=== PATIENT | female | born 1960 | race Caucasian/White ===

== ENCOUNTER 2022-07-03 10:52 | Outpatient (CLI) | payer OTHER | END 2022-07-03 10:53 | disposition home or self-care (01) | LOC: BICMRI 10:52 | PROVIDERS: ATTEND Family Medicine | DX: S33.5XXD Sprain of ligaments of lumbar spine, subsequent encounter (principal); R68.84 Jaw pain; M47.816 Spondylosis without myelopathy or radiculopathy, lumbar region | CPT/HCPCS: 72148 ==

== ENCOUNTER 2023-07-03 10:15 | Outpatient (CLI) | payer OTHER | END 2023-07-03 10:16 | disposition home or self-care (01) | LOC: BICRAD 10:15 | DX: S73.101A Unspecified sprain of right hip, initial encounter (principal) ==

== ENCOUNTER 2025-06-28 10:21 | Inpatient (IN) | payer MEDICARE, OTHER, SELFPAY ==
[2025-06-28] MEDS ORDERED: Ketorolac Tromethamine 30 MG (1 mL) VIAL ONE (12:34)
[2025-06-28] MEDS ORDERED: Ondansetron PF 4 MG/2 ML Vial ONE (12:34)
[2025-06-28 12:36] LABS: #Basophils 0.06 10x3/uL (0.0-0.2); #Eosinophils 0.06 10x3/uL (0.0-0.7); #Monocytes 0.77 10x3/uL (0.11-0.59); #Neutrophils 11.34 10x3/uL (1.40-6.50); %Basophils 0.4 % (0.0-1.0); %Eosinophils 0.4 % (0.0-10.0); %Lymphocytes 14.9 % (21.0-51.0); %Monocytes 5.3 % (0.0-10.0); %Neutrophils 78.7 % (42.0-75.0); Hematocrit 46.1 % (36.0-47.0); Hemoglobin 15.5 g/dL (12.0-16.0); Mean Corpuscular Hemoglobin 29.0 pg (27.0-31.0); Mean Corpuscular Volume 86.3 fL (78.0-98.0); Platelet Count 295 10x3/uL (130-400); Red Blood Cell (RBC) Count 5.34 mill/uL (4.20-5.40); White Blood Cell (WBC) Count 14.42 10x3/uL (4.8-10.8)
[2025-06-28] MEDS ORDERED: Communication Order-Pharmacy FS SCH (12:45)
[2025-06-28 12:59] LABS: ALT (SGPT) 14 U/L (Less than 34); AST (SGOT) 31 U/L (11-34); Albumin 4.1 g/dL (3.1-4.5); Alkaline Phosphatase 82 U/L (40-110); Anion Gap 18 mmol/L (10-20); BUN (Urea Nitrogen) 10 mg/dL (9.8-20.1); Bilirubin, Total 0.3 mg/dL (0.3-1.2); Calc. Creatinine Clearance 0 mL/min (70-130); Calcium 9.5 mg/dL (7.8-10.44); Carbon Dioxide 19 mmol/L (23-31); Chloride 109 mmol/L (98-107); Globulin 3.5 g/dL (2.4-3.5); Glucose 96 mg/dL (80-115); Potassium 4.8 mmol/L (3.5-5.1); Sodium 141 mmol/L (136-145)
[2025-06-28 13:04] LABS: INR-International Normal Ratio 0.9; PTT 29.9 sec (22.9-36.1); Prothrombin Time 12.4 sec (12.0-14.7)
[2025-06-28] MEDS ORDERED: HYDROmorphone 0.5 MG/0.5 ML SYRINGE ONE (13:20)
[2025-06-28] MEDS: HYDROcodone/Acetaminophen 10/325 mg Tablet PO PRN (14:54)
[2025-06-28 19:54] VITALS: BMI 26.2
[2025-06-28] MEDS: Calcium Carbonate 500 MG ChewTAB PO PRN (23:52)
[2025-06-29 06:00] LABS: #Basophils 0.04 10x3/uL (0.0-0.2); #Eosinophils 0.16 10x3/uL (0.0-0.7); #Monocytes 0.95 10x3/uL (0.11-0.59); #Neutrophils 6.58 10x3/uL (1.40-6.50); %Basophils 0.4 % (0.0-1.0); %Eosinophils 1.4 % (0.0-10.0); %Lymphocytes 29.9 % (21.0-51.0); %Monocytes 8.6 % (0.0-10.0); %Neutrophils 59.3 % (42.0-75.0); Hematocrit 39.9 % (36.0-47.0); Hemoglobin 13.1 g/dL (12.0-16.0); Mean Corpuscular Hemoglobin 29.6 pg (27.0-31.0); Mean Corpuscular Volume 90.1 fL (78.0-98.0); Platelet Count 275 10x3/uL (130-400); Red Blood Cell (RBC) Count 4.43 mill/uL (4.20-5.40); White Blood Cell (WBC) Count 11.09 10x3/uL (4.8-10.8)
[2025-06-29 06:15] LABS: ALT (SGPT) 18 U/L (Less than 34); AST (SGOT) 35 U/L (11-34); Albumin 3.5 g/dL (3.1-4.5); Alkaline Phosphatase 68 U/L (40-110); Anion Gap 12 mmol/L (10-20); BUN (Urea Nitrogen) 22 mg/dL (9.8-20.1); Bilirubin, Total 0.4 mg/dL (0.3-1.2); Calc. Creatinine Clearance 64 mL/min (70-130); Calcium 9.8 mg/dL (7.8-10.44); Carbon Dioxide 27 mmol/L (23-31); Chloride 104 mmol/L (98-107); Globulin 2.7 g/dL (2.4-3.5); Glucose 115 mg/dL (80-115); Potassium 3.9 mmol/L (3.5-5.1); Sodium 139 mmol/L (136-145)
[2025-06-29] MEDS: Pantoprazole 40 MG VIAL IVP SCH ×3 (08:42→20:43)
[2025-06-29] MEDS ORDERED: PROPOFOL 20 ML ONE (12:10)
[2025-06-29] MEDS ORDERED: SUCCINYLCHOLINE/SOD CL,ISO/PF 200 MG/10 ML SYRINGE FS ONE (12:10)
[2025-06-29] MEDS ORDERED: Ropivacaine 0.2% HCl/PF 20 ML ONE (12:21)
[2025-06-29] MEDS ORDERED: Ropivacaine 0.5% HCl/PF (150 MG/30 ML VIAL) ONE (12:21)
[2025-06-29] MEDS ORDERED: Ondansetron PF 4 MG/2 ML Vial ONE (12:22)
[2025-06-29] MEDS ORDERED: Famotidine/PF 20 mg/2ml Vial ONE (12:23)
[2025-06-29] MEDS ORDERED: CEFAZOLIN 2 GM VIAL ONE (12:25)
[2025-06-29 19:04] LABS: Hematocrit 40.3 % (36.0-47.0); Hemoglobin 13.2 g/dL (12.0-16.0)
[2025-06-29] MEDS: Ondansetron PF 4 MG/2 ML Vial IVP PRN (21:53)
[2025-06-29 23:16] LABS: Hematocrit 40.3 % (36.0-47.0); Hemoglobin 12.4 g/dL (12.0-16.0)
[2025-06-30] MEDS: Acetaminophen 325 MG TAB PO PRN (05:16)
[2025-06-30 07:26] LABS: Hematocrit 36.7 % (36.0-47.0); Hemoglobin 12.0 g/dL (12.0-16.0)
[2025-06-30] MEDS ORDERED: TETANUS, DIPHTHERIA TOX,ADULT (TDVAX) 0.5 ML VIAL IM ONE (09:00)
[2025-06-30] MEDS ORDERED: PROPOFOL 40 ML ONE (10:59)
[2025-06-30] MEDS ORDERED: Lidocaine 1% PF 5 ML VIAL ONE (10:59)
[2025-06-30] MEDS: HYDROcodone/Acetaminophen 10/325 mg Tablet PO PRN (16:15)
[2025-07-01 16:56] VITALS: TEMP 98
[2025-07-01 22:41] VITALS: BP 145/82
== END 2025-07-01 22:21 | disposition home or self-care (01) | DRG 512 ==
LOC: ERS 10:21 → SURG B 12:42 → OBSVTOIN 06-30 08:55
PROVIDERS: ADMIT Orthopaedic Surgery; ATTEND Orthopaedic Surgery
PROC: 0PSJ04Z Reposition Left Radius with Internal Fixation Device, Open Approach (ICD-10-PCS; principal; 2025-06-29)
PROC: 3E03329 Introduction of Other Anti-infective into Peripheral Vein, Percutaneous Approach (ICD-10-PCS; 2025-06-29)
PROC: 0DJ08ZZ Inspection of Upper Intestinal Tract, Via Natural or Artificial Opening Endoscopic (ICD-10-PCS; 2025-06-30)
PROC: 3E02340 Introduction of Influenza Vaccine into Muscle, Percutaneous Approach (ICD-10-PCS; 2025-06-30)
DX: S52.572A Other intraarticular fracture of lower end of left radius, initial encounter for closed fracture (principal); R63.4 Abnormal weight loss; K44.9 Diaphragmatic hernia without obstruction or gangrene; Z90.49 Acquired absence of other specified parts of digestive tract; Z79.899 Other long term (current) drug therapy; Z98.891 History of uterine scar from previous surgery; Z90.710 Acquired absence of both cervix and uterus; Z98.890 Other specified postprocedural states; Z68.26 Body mass index [BMI] 26.0-26.9, adult; Z23 Encounter for immunization
CPT/HCPCS: 29125; 36415; 80053; 85014; 85018; 85025; 85610; 85730; 96372; 96374; 96375; 96376; C1713; G0378; J1171; J1885; J2250; J2470; J2550; J2704; J2795; J7030